=== PATIENT | female | born 1945 | race Caucasian/White ===

== ENCOUNTER 2018-01-03 08:57 | Inpatient (IN) | payer OTHER ==
[~2018-01-03] VITALS: Ht 165.1 cm; Wt 80.8 kg
[~2018-01-03 08:57] MED LIST: ALPRAZOLAM0.5 M4 PO; BENZONATATE200 MG PO; CALCIUM + D3 E1 EACH PO; DIOVAN HCT 12.51 TA2 PO; DOXYCYCLINE100 M3 PO; EXCEDRIN MIGRAI1 TAB PO; FLUOXETINE HCL20 M2 PO; MAXALT10 MG PO; MEDROL DOSEPAK1 PAC PO; METOPROLOL SUC100 M2 PO; MUCINEX1200 MG PO; MULTIPLE VITAM1 EAC2 PO; NOVAPLUS V0.09 MG/Ac PO; PROAIR HFA0.09 MG/Ac INH; TYLENOL #31 TAB PO; ZITHROMAX Z-PA250 M1 PO; ZOCOR20 M1 PO
--- NOTE | 2018-01-03 09:43 | ED GI/GU/ABDOMINAL COMPLAINT ---
History of Present Illness General Chief Complaint: General Adult Stated Complaint: BIBA FOR BLOOD IN STOOL, GI BLEED Source: patient, family, old records Exam Limitations: no limitations Vital Signs & Intake/Output Vital Signs & Intake/Output Vital Signs Date Time Temp Pulse Resp B/P B/P Pulse O2 O2 Flow FiO2 Mean Ox Delivery Rate 01/03 1304 97.1 82 18 136/72 94 Nasal 2.0L Cannula 01/03 1026 95 Room Air 01/03 0900 97.3 102 18 123/61 94 Room Air Allergies Coded Allergies: amoxicillin (From AUGMENTIN) (Intermediate, stomach DISCOMFORT 01/03/18) clavulanic acid (From AUGMENTIN) (Intermediate, stomach DISCOMFORT 01/03/18) Reconcile Medications Alprazolam 0.5 MG TABLET 1 TAB PO DAILY NEEDED PRN ANXIETY (Reported) Calcium Carb & Citrate/Vit D3 (Calcium + D3 ER Tablet) 600 MG CALCIUM-500 UNIT TABLET.ER 1 TAB PO DAILY VITAMIN SUPPORT (Reported) Fluoxetine HCl 20 MG CAPSULE 1 CAP PO DAILY MENTAL HEALTH (Reported) Metoprolol Succinate 100 MG TAB.ER.24H 1 TAB PO DAILY HEART (Reported) Multivitamin (Multiple Vitamins) 1 EACH TABLET 1 TAB PO DAILY VITAMIN SUPPORT (Reported) Simvastatin (Zocor*) 20 MG TABLET 1 TAB PO QPM CHOLESTEROL (Reported) Valsartan (Diovan) 80 MG TABLET 1 TAB PO DAILY HEADACHE (Reported) Triage Note: 72 YEAR OLD FEMALE ALERT AND ORIENTED TO ER VIA AMBULANCE FROM HER HOME WITH COMPLAINTS OF QUESTIONS A GI BLEED, (UPPPER AND LOWER.) PT STATES THAT SHE HAD UPPER AND LOW GI SCOPE BACK IN AND WAS TOLD THAT SHE HAD HEALED ULCERS , PT HAS HAD HISTORY OF GO BLEED YEARS BACK. PT ALSO STATES THAT SHE HAS BEEN SUFFERING WITH HEADACHES AND HAS BEEN TAKING ASA FOR THEM" STATES THE DOCTOR TOLD ME NOT TO BUT ITS WHAT WORKS FOR ME". STATES THAT SHE WAS NOT FEELING THAT GREAT YESTERDAY , HAD A SLIGHT BURNING IN HER UPPER MID ABDOMEN, AND HAD SOME NAUSEA, AROUND 0600 THIS AM SHE HAD SEVERE NAUSEA AND SAT UP AND VOMITTED , DESCRIBES COFFEE GROUND MATERIAL WITH A FEW BRIGHT RED BLOOD CLOTS, ALSO STATES THAT SHE HAD 1 BOWEL MOVEMENT, BRIGHT RED BLOOD ON THE SURFACE OF THE STOOL. PT STATES THAT HER HEMAGLOBIN AND HEMATOCRIT HAVE BEEN SLOWLY DECREASING OVER THE PAST 6 MONTHS. COLOR PALE, COMPLAINS OF SOB ON EXERTION, HAS INTERMITTANT ABD CRAMPING THAT STARTED LAST PM. PAIN IN ABD 6/10 AT THIS TIME. Triage Nurses Notes Reviewed? yes ? n Is pt currently ? No Onset: Abrupt Duration: hour(s):, constant, getting worse Timing: recent history Radiation: no radiation HPI: Pt is a 72 year old WF with a of duodenal & pyloric ulcers, hemorrhoids, tobacco use hx, HTN, migraines (on PRN Excedrin) who presents to ED after an episode of bloody emesis this morning at approx 6 am and several large black, tarry bowel movements. She has mild epigastric and lower abdominal pain. She states she noticed some pink/red staining of her bowels approx two weeks ago. She has recently been significantly fatigued/lightheaded, especially worse with even minimal activity and changes in position. She endorses some SOB with exertion, intermittent palpitations. She denies CP, fevers/chills. No hx of atrial fibrillation. No daily anticoagulation or antiplatelet regimen. No hx of h. pylori infection. No other NSAID use besides PRN excedrin for migraines. Her most recent colonoscopy and endoscopy were performed June 2017 where she states there was no sign of active bleeding. She was started on a 3 month course of pantoprazole. (Vivek Sr) Past History Travel History Traveled to [place] past 21 day No Medical History Any Pertinent Medical History? see below for history Neurological: NONE EENT: sinusitis Cardiovascular: hypertension, hyperlipidemia Respiratory: NONE Gastrointestinal: GERD, peptic ulcer disease, upper GI bleed Hepatic: NONE Renal: NONE Musculoskeletal: NONE Psychiatric: NONE Endocrine: NONE Blood Disorders: NONE Cancer(s): NONE Surgical History Surgical History: non-contributory Psychosocial History What is your primary language Ivorian Tobacco Use: Never used ETOH Use: denies use Illicit Drug Use: denies illicit drug use Family History Hx Contributory? No (Vivek Sr) Review of Systems Review of Systems Constitutional: Reports: malaise, weakness. Denies: chills, diaphoresis, fever. EENTM: Reports: no symptoms. Respiratory: Denies: see HPI. Cardiovascular: Denies: see HPI. GI: Denies: see HPI. Genitourinary: Denies: no symptoms. Musculoskeletal: Denies: see HPI. Skin: Denies: no symptoms. Neurological/Psychological: Reports: headache, weakness. Hematologic/Endocrine: Reports: bleeding. Immunologic/Allergic: Reports: no symptoms. All Other Systems: Reviewed and Negative (Vivek Sr) Physical Exam Physical Exam General Appearance: well developed/nourished, no apparent distress, alert, awake , comfortable Head: atraumatic, normal appearance Eyes: Bilateral: normal appearance, EOMI, other (Conjunctival pallor). Ears, Nose, Throat, Mouth: hearing grossly normal Neck: normal inspection Respiratory: normal breath sounds, no respiratory distress, lungs clear Cardiovascular: regular rate/rhythm Peripheral Pulses: 1+ dorsalis pedis (R), 1+ dorsalis pedis (L) Gastrointestinal: soft, non-tender, no organomegaly Rectal: heme positive stool Extremities: normal range of motion Neurologic/Psych: no motor/sensory deficits Skin: intact Core Measures ACS in differential dx? No Sepsis Present: No Sepsis Focused Exam Completed? No (Vivek Sr) Progress Differential Diagnosis: appendicitis, biliary colic, bowel obstruction, cholecystitis, diverticulitis, pancreatitis, peptic ulcer, PUD/GERD, perforated viscous, SBO Plan of Care: Orders Procedure Date/time Status Clear Liquid Diet 01/03 D Active URINALYSIS 01/03 1340 Active Pathway - chart 01/03 1309 Active House Staff 01/03 1309 Active Patient Data 01/03 1309 Active Code Status 01/03 1309 Active Patient Data 01/03 1251 Active PATHOLOGY SPECIMEN 01/03 1225 Active OXYGEN SETUP (GEN) 01/03 1145 Active Saline Lock 01/03 1145 Active Admit to inpatient 01/03 1145 Active Vital Signs 01/03 1145 Active Activity/Ambulation 01/03 1145 Active Code Status 01/03 1145 Complete Intake & Output 01/03 0914 Active TROPONIN LEVEL 01/03 0912 Complete PARTIAL THROMBOPLASTIN TIME 01/03 0912 Complete PROTHROMBIN TIME 01/03 0912 Complete LACTIC ACID 01/03 0912 Complete COMPREHENSIVE METABOLIC PANEL 01/03 0912 Complete CBC WITHOUT DIFFERENTIAL 01/03 0912 Complete TYPE & SCREEN (NOT X-MATCH) 01/03 0912 Complete EKG 01/03 0901 Active VTE Mechanical Prophylaxis 01/03 UNK Active Current Medications Sig/Ashlee Start time Last Medication Dose Stop Time Status Admin Fluoxetine HCl 20 MG DAILY 01/04 1000 AC (Prozac) Losartan Potassium 50 MG DAILY 01/04 1000 AC (Cozaar) Metoprolol Succinate 100 MG DAILY 01/04 1000 AC (Toprol Xl) Atorvastatin Calcium 20 MG 1700 01/03 1700 AC (Lipitor) Ferrous Sulfate 325 MG BID 01/03 1401 UNVr (Feosol) Omeprazole 40 MG BID 01/03 1401 UNVr (Prilosec) Phenol 2 SPRAY Q2P PRN 01/03 1400 AC (Chloraseptic (Phenaseptic) [place]) Acetaminophen 325 MG Q6P PRN 01/03 1315 AC (Tylenol) Alprazolam 0.5 MG DAILY NEEDED PRN 01/03 1315 AC (Xanax) 01/10 1314 Pantoprazole Sodium 40 MG ONCE ONE 01/03 1015 AC 01/03 (Protonix) 01/03 1514 1021 Sodium Chloride 100 ML (Normal Saline 0.9%) Laboratory Tests 01/03/18 1344: Urine Color Pending, Urine Clarity Pending, Urine pH Pending, Ur Specific [place] Pending, Urine Protein Pending, Urine Ketones Pending, Urine Nitrite Pending, Urine Bilirubin Pending, Urine Urobilinogen Pending, Ur Leukocyte Esterase Pending, Ur Microscopic SEDIMENT EXAMINED, Urine RBC Pending, Urine Hemoglobin Pending, Urine Glucose Pending 01/03/18 1212: Lactic Acid Cancelled 01/03/18 0930: Anion Gap 11, Estimated GFR > 60, BUN/Creatinine Ratio 66.3 H, Glucose 130 H, Lactic Acid 1.7, Calcium 8.9, Total Bilirubin 0.6, AST 15, ALT 25, Alkaline Phosphatase 80, Troponin I 0.02, Total Protein 6.7, Albumin 3.5, Globulin 3.2, Albumin/Globulin Ratio 1.1, PT 13.6 H, INR 1.24 H, APTT 34, CBC w Diff NO MAN DIFF REQ, RBC 2.73 L, MCV 93.6, MCH 31.2 H, MCHC 33.3, RDW 13.7, MPV 10.5 H, Gran % 84.8 H, Lymphocytes % 9.6 L, Monocytes % 5.1, Eosinophils % 0.2, Basophils % 0.3, Absolute Granulocytes 11.8 H, Absolute Lymphocytes 1.3, Absolute Monocytes 0.7 H, Absolute Eosinophils 0, Absolute Basophils 0 Initial ED EKG: normal sinus rhythm, rate (99) (Vivek Sr) Departure Departure Disposition: STILL A PATIENT Condition: Stable Clinical Impression Primary Impression: Upper GI bleed Referrals: Patient Has No Primary Care Dr Departure Forms: Customer Survey General Discharge Information Admission Note Spoke With: Diana Gamble MD Documentation of Exam: Documentation of any treatments & extenuating circumstances including Concerns Regarding Discharge (functional status, medication knowledge or non-compliance, living conditions, etc.) that warrant an admission rather than observation: Patient will require repeat CBCs. GI consultation. Upper endoscopy. High risk. Medically not safe for discharge. Drop in H&H. (Vivek Sr) PA/SLUNK SKIN CURER Co-Sign Statement Statement: ED Attending supervision documentation- x I saw and evaluated the patient. I have also reviewed all the pertinent lab results and diagnostic results. I agree with the findings and the plan of care as documented in the PA's/SLUNK SKIN CURER's documentation. Hematochezia, hx gastritis, symptomatic anemia I have reviewed the ED Record and agree with the PA's/SLUNK SKIN CURER's documentation. [] Additions or exceptions (if any) to the PAs/SLUNK SKIN CURER's note and plan are summarized below: [] (Brown JOHANSEN,Jose) Critical Care Note Critical Care Note Critical Care Time: 30-74 min (60) (Vivek Sr)
[2018-01-03 09:48] LABS: ABSOLUTE BASOPHIL COUNT 0 /CUMM (0.0-0.2); ABSOLUTE EOSINOPHIL COUNT 0 /CUMM (0.0-0.7); ABSOLUTE GRANULOCYTE CT 11.8 /CUMM (1.4-6.5); ABSOLUTE LYMPH COUNT 1.3 /CUMM (1.2-3.4); ABSOLUTE MONOCYTE COUNT 0.7 /CUMM (0.10-0.60); BASOPHIL % 0.3 % (0.0-2.0); EOSINOPHIL % 0.2 % (0-5); HEMATOCRIT 25.5 % (37-47); MEAN CORPUSCULAR HGB 31.2 PG (27.0-31.0); MEAN CORPUSCULAR HGB CONC 33.3 G/DL (33.0-37.0); MEAN CORPUSCULAR VOLUME 93.6 FL (81.0-99.0); MEAN PLATELET VOLUME 10.5 FL (7.4-10.4); PLATELET COUNT 229 /CUMM (130-400); RBC DISTRIBUTION WIDTH 13.7 % (11.5-14.5); RED BLOOD CELL CT 2.73 /CUMM (4.20-5.40); WHITE BLOOD CELL COUNT 13.9 /CUMM (4.8-10.8)
[2018-01-03 09:58] LABS: GRANULOCYTE % 84.8 % (42.2-75.2)
[2018-01-03 10:01] LABS: PT 13.6 SEC (9.4-12.5); PTT 34 SEC (25-37)
[2018-01-03] MEDS ORDERED: DIOVAN80 M1 PO (10:30)
--- NOTE | 2018-01-03 11:36 | Cons- Gastroenterology ---
General Information and HPI Consulting Request Date of Consult: 01/03/18 Requested By: JOHN Galo Reason for Consult: Hematemesis, melena, brbrp, anemia. Source of Information: patient, old records Exam Limitations: no limitations History of Present Illness: Ms. Kuhn is a 72 year old female with a PMH significant for hypertension, hyperlipidemia, migraines and gastritis who presented to [facility] this morning with complaints of coffee-ground emesis and bright blood per rectum. She notes that over the past several days she has had a slight discomfort in her upper abdomen which she described as a 'twinge sensation', but she has been without any burning epigastric pain or heartburn. She has been taking excedrin for headaches which she notes she takes about every other day and she denies any significant GI distress with taking it. She also notes that she stopped taking her Prilosec back in June which was the last time she underwent an endoscopy. This morning she awoke with some nausea which was followed by vomiting up of coffee-ground emesis along with scant amounts of fresh blood. The vomiting was followed by several episodes of dark tarry stool and she also notes she noted some red blood in her stool. She denies any significant chest pain, shortness of breath, or lightheadedness and she has not had any syncopal episodes. Prior to this morning she had been having normal bowel movements. On presentation to the ER she was mildly tachycardic, but normotensive. A rectal exam revealed dark guaiac positive stool and she was noted to have a hemoglobin of 8.5 which was a 3 g drop from her baseline. She was given a bolus of IV Protonix and kept nothing by mouth. Since arrival to the hospital she has not had any further vomiting or any bowel movements. Allergies/Medications Allergies: Coded Allergies: amoxicillin (From AUGMENTIN) (Intermediate, stomach DISCOMFORT 01/03/18) clavulanic acid (From AUGMENTIN) (Intermediate, stomach DISCOMFORT 01/03/18) Home Med List: Alprazolam 0.5 MG TABLET 1 TAB PO DAILY NEEDED PRN ANXIETY (Reported) Calcium Carb & Citrate/Vit D3 (Calcium + D3 ER Tablet) 600 MG CALCIUM-500 UNIT TABLET.ER 1 TAB PO DAILY VITAMIN SUPPORT (Reported) Fluoxetine HCl 20 MG CAPSULE 1 CAP PO DAILY MENTAL HEALTH (Reported) Metoprolol Succinate 100 MG TAB.ER.24H 1 TAB PO DAILY HEART (Reported) Multivitamin (Multiple Vitamins) 1 EACH TABLET 1 TAB PO DAILY VITAMIN SUPPORT (Reported) Simvastatin (Zocor*) 20 MG TABLET 1 TAB PO QPM CHOLESTEROL (Reported) Valsartan (Diovan) 80 MG TABLET 1 TAB PO DAILY HEADACHE (Reported) Current Medications: Current Medications Sig/Ashlee Start time Last Medication Dose Route Stop Time Status Admin Pantoprazole Sodium 0 .STK-MED ONE 01/03 1025 DC IV Pantoprazole Sodium 40 MG ONCE ONE 01/03 1015 AC 01/03 Sodium Chloride 100 ML IV 01/03 1514 1021 Past History Travel History Traveled to [place] past 21 day No Medical History Neurological: NONE EENT: sinusitis Cardiovascular: hypertension, hyperlipidemia Respiratory: NONE Gastrointestinal: GERD, peptic ulcer disease, upper GI bleed Hepatic: NONE Renal: NONE Musculoskeletal: NONE Psychiatric: NONE Endocrine: NONE Blood Disorders: NONE Cancer(s): NONE Surgical History Surgical History: non-contributory Psychosocial History ETOH Use: denies use Illicit Drug Use: denies illicit drug use Review of Systems Review of Systems Constitutional: Denies: chills, diaphoresis, fever, malaise, weakness, unexplained weight loss. EENTM: Denies: no symptoms. Cardiovascular: Denies: no symptoms. Respiratory: Denies: no symptoms. GI: Reports: see HPI. Genitourinary: Denies: no symptoms. Musculoskeletal: Denies: no symptoms. Skin: Denies: no symptoms. Neurological/Psychological: Reports: headache. Hematologic/Endocrine: Reports: bleeding. Denies: bruising. Immunologic/Allergic: Denies: no symptoms. All Other Systems: Reviewed and Negative Exam & Diagnostic Data Vital Signs and I&O Vital Signs Date Time Temp Pulse Resp B/P B/P Pulse O2 O2 Flow FiO2 Mean Ox Delivery Rate 01/03 1026 95 Room Air 01/03 0900 97.3 102 18 123/61 94 Room Air Intake & Output 01/03 1600 01/03 0400 01/02 1600 01/02 04001/01 1600 01/01 040 Intake Total 0 Output Total Balance 0 Intake, Oral 0 Patient 168 lb Weight Results Pertinent Lab Results: Laboratory Tests 01/03 0930 Chemistry Sodium (137 - 145 mmol/L) 143 Potassium (3.5 - 5.1 mmol/L) 4.7 Chloride (98 - 107 mmol/L) 104 Carbon Dioxide (22 - 30 mmol/L) 28 Anion Gap (5 - 16) 11 BUN (7 - 17 mg/dL) 53 H Creatinine (0.5 - 1.0 mg/dL) 0.8 Estimated GFR (>60 ml/min) > 60 BUN/Creatinine Ratio (7 - 25 %) 66.3 H Glucose (65 - 99 mg/dL) 130 H Lactic Acid (0.7 - 2.1 mmol/L) 1.7 Calcium (8.4 - 10.2 mg/dL) 8.9 Total Bilirubin (0.2 - 1.3 mg/dL) 0.6 AST (14 - 36 U/L) 15 ALT (9 - 52 U/L) 25 Alkaline Phosphatase (<127 U/L) 80 Troponin I (< 0.11 ng/ml) 0.02 Total Protein (6.3 - 8.2 g/dL) 6.7 Albumin (3.5 - 5.0 g/dL) 3.5 Globulin (1.9 - 4.2 gm/dL) 3.2 Albumin/Globulin Ratio (1.1 - 2.2 %) 1.1 Coagulation PT (9.4 - 12.5 SEC) 13.6 H INR (0.90 - 1.19) 1.24 H APTT (25 - 37 SEC) 34 Hematology CBC w Diff NO MAN DIFF REQ WBC (4.8 - 10.8 /CUMM) 13.9 H RBC (4.20 - 5.40 /CUMM) 2.73 L Hgb (12.0 - 16.0 G/DL) 8.5 L Hct (37 - 47 %) 25.5 L MCV (81.0 - 99.0 FL) 93.6 MCH (27.0 - 31.0 PG) 31.2 H MCHC (33.0 - 37.0 G/DL) 33.3 RDW (11.5 - 14.5 %) 13.7 Plt Count (130 - 400 /CUMM) 229 MPV (7.4 - 10.4 FL) 10.5 H Gran % (42.2 - 75.2 %) 84.8 H Lymphocytes % (20.5 - 51.1 %) 9.6 L Monocytes % (1.7 - 9.3 %) 5.1 Eosinophils % (0 - 5 %) 0.2 Basophils % (0.0 - 2.0 %) 0.3 Absolute Granulocytes (1.4 - 6.5 /CUMM) 11.8 H Absolute Lymphocytes (1.2 - 3.4 /CUMM) 1.3 Absolute Monocytes (0.10 - 0.60 /CUMM) 0.7 H Absolute Eosinophils (0.0 - 0.7 /CUMM) 0 Absolute Basophils (0.0 - 0.2 /CUMM) 0 Assessment/Plan Assessment/Recommendations: Assessment: Ms. Kuhn is a 72 year old female who presents with coffee ground emesis, melena and a decreased hemoglobin all likely secondary to an upper GI bleed which I presume is secondary to NSAIDs especially considering she stopped her PPI about 6 months ago and continued to take excedrin. Her BUN/Cr ratio suggests the fall from her hgb is from an upper GI source (as does the hematemsis) so I will arrange for a diagnostic EGD now to assess for any active bleeding, treat any high risk lesions and also to rule out any other cause of the bleeding such as a malignancy, avm, dieulafoys lesion, or a gloria perez tear, but it should be noted that as she had an EGD in June of last year a malignancy is very unlikely. Recommendations: 1. Continue IV protonix drip for now. 2. Keep NPO 3. Maintain 2 large bore IVs at all times. 4. Notify GI for signs of overt GI bleeding. 5. Hold all nsaids 6. Follow CBC q8hr and transfuse as needed to keep hgb > 8. 6. Will arrange for a diagnostic/therapeutic EGD now to further evaluate the etiology of her hematemesis, assess for active bleeding and/or treat any high risk lesions. I will continue to follow this patient and make further recommendations based on her clinical course and results of her EGD Copies To: Mary Win MD Consult Acknowledgment - Thank you for your consult request.
--- NOTE | 2018-01-03 12:04 | Proc Note Endoscopy ---
Endoscopy Procedure Medical History: unchanged (see [facility]) Mental Status: alert/oriented Heart/Lung Eval Prior to Sedation: within normal limits Candidate for Sedation? Yes Procedure Date: 01/03/18 Procedure Type: EGD w/biopsy Lath Hand: Sharan Jones MD ASA Classification: II Indications: Hematemesis, melena. Instrument: diagnostic gastroscope Meds Received: MAC Patient's Tolerance: good Complications: none Extent Reached: second part of duodenum Procedure: After getting written informed consent the patient was prophylactically intubated and was then placed in the left lateral decubitus position with pulse oximetry, cardiac monitoring, and supplemental oxygen given. A bite block was inserted and IV sedation was given until the desired effect was achieved. A high definition upper Olympus endoscope was then inserted into the mouth and advanced to the second portion of the duodenum with little difficulty. Retroflexed views and photodocumentation was obtained. Findings: Esophagus: Esophageal mucosa was grossly normal appearance and there was a normal-appearing Z line at 40 cm from incisors. Stomach: The antral mucosa was mildly erythematous with several scattered erosions and the pylorus was widely patent and deformed suggestive of prior peptic ulcer disease, but there were no active ulcers or masses appreciated. There was also no bleeding appreciated within the stomach. Retroflexed views were normal did not reveal significant hiatal hernia. Random biopsies were obtained from the antrum with cold biopsy forceps and were sent to pathology for further valuation. Duodenum: The duodenal bulb was moderately erythematous with a few small less than 1 cm clean-based ulcerations. The duodenal sweep and folds are grossly normal appearance. There was bile appreciated throughout to the second portion of the duodenum. Impression: 1. Small clean-based duodenal ulcers status post antral biopsies. 2. Erosive gastritis and deformed antrum suggestive of prior peptic ulcer disease. 3. No active bleeding appreciated to the second portion of the duodenum. Recommendations: 1. Advance diet as tolerated. 2. Place on an oral PPI twice a day for 2 weeks and then daily dosing. 3. She should be counseled to avoid taking NSAIDs. 4. She should follow the pathology results with me as an outpatient. 5. She should be started on oral iron supplementation. 6. She should follow-up as an outpatient to give consideration for a small bowel PillCam plus or minus a repeat colonoscopy. CC: Quirino JOHANSEN,Mary
--- NOTE | 2018-01-03 14:00 | History & Physical ---
Marly Ortiz 01/03/18 1339: General Information and HPI MD Statement: I have seen and personally examined MONI KUHN and documented this H&P. The patient is a 72 year old F who presented with a patient stated chief complaint of [GI bleed]. Source of Information: patient, old records Exam Limitations: no limitations History of Present Illness: Ms. Kuhn is a 72 year old female with a PMH significant for hypertension, hyperlipidemia, migraines and gastritis who presented to [facility] with complaints of coffee-ground emesis and bright blood per rectum. Patient reports that for the past several days she has been having discomfort in her upper abdomen and this morning she woke up at around 3 AM with nausea and had multiple episodes of coffee-ground emesis mixed with fresh blood. She also reports dark tarry stools mixed with fresh blood. She has been feeling tired, fatigued and lightheaded from the past several weeks. Denied any chest pain, shortness of breath, palpitations, syncopal or urinary symptoms. She has history of migraines and has been taking a lot of aspirin in the past few days. Denies any other NSAID use. Denies any epigastric pain or heartburn. Patient had been following with Dr. Smith as outpatient and had colonoscopy and endoscopy done in June 2017 which revealed no active bleeding, some gastric erosions and she was started on Prilosec and iron supplements. Plan was to pursue PillCam later. Patient had stopped taking Prilosec and iron supplements after 3 months. Rectal exam done in the ER showed dark guaiac-positive stool and a hemoglobin of 8.5. Vitals in the ED showed a temperature 97.3, pulse 102, respiration 18, blood pressure 123/61, saturating 94% on room air Significant labs showed a white count of 13.9, H&H of 8.3 / 25.5(baseline 11), INR 1.24. Endoscopy done showed clean-based duodenal ulcers, erosive gastritis and deformed antrum suggestive of prior peptic ulcer disease. No active bleeding was appreciated Allergies/Medications Allergies: Coded Allergies: amoxicillin (From AUGMENTIN) (Intermediate, stomach DISCOMFORT 01/03/18) clavulanic acid (From AUGMENTIN) (Intermediate, stomach DISCOMFORT 01/03/18) Home Med list Alprazolam 0.5 MG TABLET 1 TAB PO DAILY NEEDED PRN ANXIETY (Reported) Calcium Carb & Citrate/Vit D3 (Calcium + D3 ER Tablet) 600 MG CALCIUM-500 UNIT TABLET.ER 1 TAB PO DAILY VITAMIN SUPPORT (Reported) Fluoxetine HCl 20 MG CAPSULE 1 CAP PO DAILY MENTAL HEALTH (Reported) Metoprolol Succinate 100 MG TAB.ER.24H 1 TAB PO DAILY HEART (Reported) Multivitamin (Multiple Vitamins) 1 EACH TABLET 1 TAB PO DAILY VITAMIN SUPPORT (Reported) Simvastatin (Zocor*) 20 MG TABLET 1 TAB PO QPM CHOLESTEROL (Reported) Valsartan (Diovan) 80 MG TABLET 1 TAB PO DAILY HEADACHE (Reported) Past History Travel History Traveled to [place] past 21 day No Medical History Neurological: NONE EENT: sinusitis Cardiovascular: hypertension, hyperlipidemia Respiratory: NONE Gastrointestinal: GERD, peptic ulcer disease, upper GI bleed Hepatic: NONE Renal: NONE Musculoskeletal: NONE Psychiatric: NONE Endocrine: NONE Blood Disorders: NONE Cancer(s): NONE Surgical History Surgical History: non-contributory Past Family/Social History Psychosocial History ETOH Use: denies use Illicit Drug Use: denies illicit drug use Review of Systems Review of Systems Constitutional: Reports: malaise, weakness. EENTM: Reports: no symptoms. Cardiovascular: Reports: no symptoms. Respiratory: Reports: no symptoms. GI: Reports: melena, nausea, bloody stool, vomiting. Genitourinary: Reports: no symptoms. Musculoskeletal: Reports: no symptoms. Exam & Diagnostic Data Last 24 Hrs of Vital Signs/I&O Vital Signs Date Time Temp Pulse Resp B/P B/P Pulse O2 O2 Flow FiO2 Mean Ox Delivery Rate 01/03 1304 97.1 82 18 136/72 94 Nasal 2.0L Cannula 01/03 1026 95 Room Air 01/03 0900 97.3 102 18 123/61 94 Room Air Intake & Output 01/03 1600 01/03 0800 01/03 0000 Intake Total 1000 Output Total Balance 1000 Intake, IV 1000 Intake, Oral 0 Patient 76.204 kg Weight Physical Exam General Appearance Alert, Oriented X3, Cooperative, Mild Distress Skin No Rashes HEENT Atraumatic, PERRLA, EOMI Neck Supple, No JVD Lymphatic Cervical nl Cardiovascular Regular Rate, Normal S1, Normal S2, No Murmurs Lungs Clear to Auscultation, Normal Air Movement Abdomen Normal Bowel Sounds, Soft, mild tenderness in the epigastric area. Neurological Normal Speech Extremities No Clubbing, No Cyanosis Rectal heme positive stools Last 24 Hrs of Labs/Seun: Laboratory Tests 01/03/18 1344: Urine Color Pending, Urine Clarity Pending, Urine pH Pending, Ur Specific [place] Pending, Urine Protein Pending, Urine Ketones Pending, Urine Nitrite Pending, Urine Bilirubin Pending, Urine Urobilinogen Pending, Ur Leukocyte Esterase Pending, Ur Microscopic Pending, Urine Hemoglobin Pending, Urine Glucose Pending 01/03/18 1212: Lactic Acid Cancelled 01/03/18 0930: Anion Gap 11, Estimated GFR > 60, BUN/Creatinine Ratio 66.3 H, Glucose 130 H, Lactic Acid 1.7, Calcium 8.9, Total Bilirubin 0.6, AST 15, ALT 25, Alkaline Phosphatase 80, Troponin I 0.02, Total Protein 6.7, Albumin 3.5, Globulin 3.2, Albumin/Globulin Ratio 1.1, PT 13.6 H, INR 1.24 H, APTT 34, CBC w Diff NO MAN DIFF REQ, RBC 2.73 L, MCV 93.6, MCH 31.2 H, MCHC 33.3, RDW 13.7, MPV 10.5 H, Gran % 84.8 H, Lymphocytes % 9.6 L, Monocytes % 5.1, Eosinophils % 0.2, Basophils % 0.3, Absolute Granulocytes 11.8 H, Absolute Lymphocytes 1.3, Absolute Monocytes 0.7 H, Absolute Eosinophils 0, Absolute Basophils 0 Assessment/Plan Assessment: Ms. Kuhn is a 72 year old female with a PMH significant for hypertension, hyperlipidemia, migraines and gastritis who presented to [facility] with complaints of coffee-ground emesis and bright blood per rectum. Vitals in the ED showed a temperature 97.3, pulse 102, respiration 18, blood pressure 123/61, saturating 94% on room air Significant labs showed a white count of 13.9, H&H of 8.3 / 25.5(baseline 11), INR 1.24. Rectal exam done in the ER showed dark guaiac-positive stool and a hemoglobin of 8.5. Endoscopy done showed clean-based duodenal ulcers, erosive gastritis and deformed antrum suggestive of prior peptic ulcer disease. No active bleeding was appreciated. Assessment Upper GI bleed likely secondary to NSAIDs Anemia Migraines Hypertension Hyperlipidemia Plan Admit to [facility] CBC every 12 hours Protonix twice a day Will advance diet Will start oral iron supplementation Patient consult to avoid taking NSAIDs We will try Fioricet for headaches Continue all other home medications Outpatient follow-up with Dr. Jones for pathology results Plan to do small bowel PillCam with or without colonoscopy as an outpatient. DVT prophylaxis Alps Full code As Ranked By This Provider Problem List: 1. Upper GI bleed Core Measures/Misc (06/23) Acute Coronary Syndrome ACS Diagnosis: No Congestive Heart Failure Congestive Heart Failure Diagnosis No Cerebrovascular Accident CVA/TIA Diagnosis: No VTE (View Protocol) VTE Risk Factors Age>40 No Mechanical VTE Prophylaxis d/t N/A MechProphylax Ordered No VTE Pharm Prophylaxis d/t Bleeding (Active) Sepsis (View protocol) Sepsis Present: No Diana Gamble MD 01/03/18 1431: Attending MD Review Statement Attending Statement Attending MD Statement: examined this patient, discuss w/resident/PA/CAP CUTTER, agreed w/resident/PA/CAP CUTTER, reviewed EMR data (avail) Attending Assessment/Plan: 72F PMH HTN, HLD, migraines presenting with coffee ground emesis and melena. She has a history of gastric erosions diagnosed June 2017 by EGD after presenting with melena, took a PPI for 3 months and then stopped. She has had melena for the past 3 days, and awoke last night vomiting coffee grounds and dark blood. She came to the ED where she was found to be hemodynamically stable with a Hgb drop from 11 to 8. She was taken for EGD which found multiple non- bleeding duodenal ulcers and gastric erosions. She currently has no complaints and feels hungry. 1. Acute upper GI bleed 2. Duodenal ulcers 3. Acute on chronic blood loss anemia Plan - Admit to general medicine - PPI BID - Clear liquid diet, advance as tolerated - CBC tonight and again tomorrow morning - Continue home meds - Avoid NSAIDs - ALPS for DVT PPx
[2018-01-03 14:23] VITALS: BP 144/76
--- NOTE | 2018-01-03 14:55 | Admission Certification ---
Admission Certification Certification Statement - As attending physician, I certify that at the time of - admission, based on clinical presentation, severity of - symptoms, need for further diagnostic testing and - therapeutic interventions, and risk of adverse outcomes - without in-hospital treatment, in my clinical assessment, - this patient requires an acute hospital stay for a minimum - of two nights or longer. I have also considered psychsocial - factors such as support system, advanced age, financial - issues, cognitive issues, and failed out-patient treatments, - past re-admission history, safety of patient, and lack of - compliance as applicable. Specific rationale supporting this admission is: Acute GI bleed with multiple ulcers and symptomatic anemia
[2018-01-03 19:53] LABS: ABSOLUTE BASOPHIL COUNT 0 /CUMM (0.0-0.2); ABSOLUTE EOSINOPHIL COUNT 0 /CUMM (0.0-0.7); BASOPHIL % 0 % (0.0-2.0); EOSINOPHIL % 0 % (0-5)
[2018-01-03 19:58] LABS: ABSOLUTE GRANULOCYTE CT 14.1 /CUMM (1.4-6.5); ABSOLUTE LYMPH COUNT 1.1 /CUMM (1.2-3.4); ABSOLUTE MONOCYTE COUNT 0.2 /CUMM (0.10-0.60); HEMATOCRIT 22.8 % (37-47); MEAN CORPUSCULAR HGB 31.1 PG (27.0-31.0); MEAN CORPUSCULAR HGB CONC 32.9 G/DL (33.0-37.0); MEAN CORPUSCULAR VOLUME 94.6 FL (81.0-99.0); MEAN PLATELET VOLUME 10.4 FL (7.4-10.4); PLATELET COUNT 210 /CUMM (130-400); RBC DISTRIBUTION WIDTH 13.8 % (11.5-14.5); RED BLOOD CELL CT 2.41 /CUMM (4.20-5.40); WHITE BLOOD CELL COUNT 15.4 /CUMM (4.8-10.8)
[2018-01-03 20:16] LABS: GRANULOCYTE % 91.6 % (42.2-75.2)
[2018-01-03 22:05] VITALS: BP 120/64
--- NOTE | 2018-01-04 05:26 | PN- Housestaff ---
See Addendum Subjective Follow-up For: acute gi bleed Complaints: no complaints Subjective: I have seen and examined the patient today timothy. she seems to be feeling better. Her hgb dropped to 7.5, GI was called and case was discussed with DR mueller. He was agreeable to transfusing one unit. Recommendations to monitor closely. will see patient in am. Review of Systems Constitutional: Reports: see HPI. Objective Last 24 Hrs of Vital Signs/I&O Vital Signs Date Time Temp Pulse Resp B/P B/P Pulse O2 O2 Flow FiO2 Mean Ox Delivery Rate 01/03 2205 99.4 99 20 120/64 94 Room Air 01/03 1423 98.2 102 20 144/76 90 Room Air 01/03 1304 97.1 82 18 136/72 94 Nasal 2.0L Cannula 01/03 1026 95 Room Air 01/03 0900 97.3 102 18 123/61 94 Room Air Intake & Output 01/04 0800 01/04 0000 01/03 1600 Intake Total 350 1240 Output Total 300 Balance 50 1240 Intake, IV 1000 Intake, Oral 350 240 Number 1 Bowel Movements Output, Urine 300 Patient 80.824 kg Weight Weight Bed scale Measurement Method Physical Exam General Appearance: Alert, Oriented X3, Cooperative Skin: No Rashes, No Breakdown HEENT: Atraumatic, PERRLA, EOMI Cardiovascular: Normal S1, Normal S2, No Murmurs Lungs: Clear to Auscultation, Normal Air Movement Abdomen: Normal Bowel Sounds, Soft, No Tenderness Current Medications: Current Medications Sig/Ashlee Start time Last Medication Dose Route Stop Time Status Admin Acetaminophen 325 MG Q6P PRN 01/03 1315 AC 01/04 PO 0035 Acetaminophen/ 1 TAB ONCE PRN 01/03 1715 AC 01/03 Butalbital/Caffeine PO 1803 Alprazolam 0.5 MG DAILY NEEDED PRN 01/03 1315 AC PO 01/10 1314 Atorvastatin Calcium 20 MG 1700 01/03 1700 AC 01/03 PO 1729 Chlorhexidine 1 GM .STK-MED ONE 01/03 1228 DC Gluconate TOP 01/03 1229 Enoxaparin Sodium 40 MG DAILY 01/03 1308 DC SC Ferrous Sulfate 325 MG BID 01/03 1401 AC 01/03 PO 2131 Fluoxetine HCl 20 MG DAILY 01/04 1000 AC PO Losartan Potassium 50 MG DAILY 01/04 1000 AC PO Metoprolol Succinate 100 MG DAILY 01/04 1000 AC PO Omeprazole 40 MG BID 01/03 1401 AC 01/03 PO 2131 Pantoprazole Sodium 0 .STK-MED ONE 01/03 1025 DC IV Pantoprazole Sodium 40 MG ONCE ONE 01/03 1015 DC 01/03 Sodium Chloride 100 ML IV 01/03 1514 1021 Phenol 2 SPRAY Q2P PRN 01/03 1400 AC EXT Last 24 Hrs of Lab/Seun Results Last 24 Hrs of Labs/Mics: Laboratory Tests 01/03/18 1926: CBC w Diff NO MAN DIFF REQ, RBC 2.41 L, MCV 94.6, MCH 31.1 H, MCHC 32.9 L, RDW 13.8, MPV 10.4, Gran % 91.6 H, Lymphocytes % 7.1 L, Monocytes % 1.3 L, Eosinophils % 0, Basophils % 0, Absolute Granulocytes 14.1 H, Absolute Lymphocytes 1.1 L, Absolute Monocytes 0.2, Absolute Eosinophils 0, Absolute Basophils 0 01/03/18 1344: Urine Color YEL, Urine Clarity CLEAR, Urine pH 6.0, Ur Specific [place] 1.020, Urine Protein NEG, Urine Ketones NEG, Urine Nitrite NEG, Urine Bilirubin NEG, Urine Urobilinogen 0.2, Ur Leukocyte Esterase NEG, Ur Microscopic SEDIMENT EXAMINED, Urine RBC 5-10 H, Urine WBC 3-5 H, Ur Epithelial Cells RARE, Urine Bacteria FEW H, Hyaline Casts 1-3 H, Granular Casts RARE H, Urine Hemoglobin LARGE H, Urine Glucose NEG 01/03/18 1212: Lactic Acid Cancelled 01/03/18 0930: Anion Gap 11, Estimated GFR > 60, BUN/Creatinine Ratio 66.3 H, Glucose 130 H, Lactic Acid 1.7, Calcium 8.9, Total Bilirubin 0.6, AST 15, ALT 25, Alkaline Phosphatase 80, Troponin I 0.02, Total Protein 6.7, Albumin 3.5, Globulin 3.2, Albumin/Globulin Ratio 1.1, PT 13.6 H, INR 1.24 H, APTT 34, CBC w Diff NO MAN DIFF REQ, RBC 2.73 L, MCV 93.6, MCH 31.2 H, MCHC 33.3, RDW 13.7, MPV 10.5 H, Gran % 84.8 H, Lymphocytes % 9.6 L, Monocytes % 5.1, Eosinophils % 0.2, Basophils % 0.3, Absolute Granulocytes 11.8 H, Absolute Lymphocytes 1.3, Absolute Monocytes 0.7 H, Absolute Eosinophils 0, Absolute Basophils 0 Lines/Diet/Fluids Restraints: none Assessment/Plan Assessment: Ms. Kuhn is a 72 year old female with a PMH significant for hypertension, hyperlipidemia, migraines and gastritis who presented to [facility] with complaints of coffee-ground emesis and bright blood per rectum. Vitals in the ED showed a temperature 97.3, pulse 102, respiration 18, blood pressure 123/61, saturating 94% on room air Significant labs showed a white count of 13.9, H&H of 8.3 / 25.5(baseline 11), INR 1.24. Rectal exam done in the ER showed dark guaiac-positive stool and a hemoglobin of 8.5. Endoscopy done by Dr ma and it showed clean-based duodenal ulcers, erosive gastritis and deformed antrum suggestive of prior peptic ulcer disease. No active bleeding was appreciated. Problem List alongwith Assessment and plan : #1 Upper GI bleed likely secondary to NSAIDs * Most likely 2/2 to excessive Nsaid Usage. * Endscopy was done and showed clean-based duodenal ulcers, erosive gastritis and deformed antrum suggestive of prior peptic ulcer disease. No active bleeding was appreciated. * monitor CBC q12 and target hgb > 8 * transfuse one unit as hgb has dropped, consent obtained from patient. * GI was called stat, cased discussed over night, agree with transfusins one unit, no prep for coloscopy for now, will see patient in am. * ct protonix #2 Acute blood loss Anemia * Acute blood loss anemia 2/2 to gi bleed. * ct to monitor for bleeding. * MCV 94.4 * transfuse as indicated. * can consider doing iron studies to rule out iron deficiency. #3 Migraines * Patient needs to avoid nsaid * if headache + ,try firocet. #4Hypertension/Hyperlipidemia * ct metoprolol 100 mg od * ct cozaar * ct lipitor DVT prophylaxis Alps Full code Problem List: 1. Upper GI bleed Pain Ratin Pain Location: headache Pain Goal: Remain pain free Pain Plan: firocet as cannot tolerate nsaids/tylenol. Tomorrow's Labs & Rationales: [facility] q12
[2018-01-04 07:16] VITALS: BP 124/66
[2018-01-04 08:47] LABS: ABSOLUTE BASOPHIL COUNT 0 /CUMM (0.0-0.2); ABSOLUTE EOSINOPHIL COUNT 0 /CUMM (0.0-0.7); ABSOLUTE GRANULOCYTE CT 10.7 /CUMM (1.4-6.5); ABSOLUTE LYMPH COUNT 1.4 /CUMM (1.2-3.4); ABSOLUTE MONOCYTE COUNT 1.4 /CUMM (0.10-0.60); BASOPHIL % 0.1 % (0.0-2.0); EOSINOPHIL % 0 % (0-5); GRANULOCYTE % 79.1 % (42.2-75.2); HEMATOCRIT 23.3 % (37-47); MEAN CORPUSCULAR HGB 30.8 PG (27.0-31.0); MEAN CORPUSCULAR HGB CONC 32.8 G/DL (33.0-37.0); MEAN CORPUSCULAR VOLUME 93.8 FL (81.0-99.0); MEAN PLATELET VOLUME 10.8 FL (7.4-10.4); PLATELET COUNT 179 /CUMM (130-400); RBC DISTRIBUTION WIDTH 14.9 % (11.5-14.5); RED BLOOD CELL CT 2.48 /CUMM (4.20-5.40); WHITE BLOOD CELL COUNT 13.5 /CUMM (4.8-10.8)
--- NOTE | 2018-01-04 14:03 | PN- Gastroenterology ---
Assessment/Plan GI Assessment/Recommendations: patient had an uneventful night. One BM at 6PM with a small streak of blood and a small BM at 8AM today without blood. Feels well. No N/V/abdo pain. Tolerating PO well. Abdo soft, non-tender, no masses. 1. Advance diet. 2. continue PPI 3. Check CBC in AM. Subjective Subjective: a Objective Vital Signs and I&Os Vital Signs Date Time Temp Pulse Resp B/P B/P Pulse O2 O2 Flow FiO2 Mean Ox Delivery Rate 01/04 0857 98.4 117 20 120/78 01/04 0856 117 120/78 01/04 0716 98.4 106 20 124/66 94 01/03 2205 99.4 99 20 120/64 94 Room Air 01/03 1423 98.2 102 20 144/76 90 Room Air Intake & Output 01/04 1600 01/04 0400 01/03 1600 01/03 0400 01/02 1600 01/02 0400 Intake Total 935 675 3965 Output Total 400 300 Balance 600 14 4295 Intake, Blood 350 Product Intake, IV 1000 Intake, Oral 250 350 240 Number 1 Bowel Movements Output, Urine 400 300 Patient 178 lb Weight Weight Bed scale Measurement Method Results Pertinent Lab Results: a Laboratory Tests 01/04 01/03 0751 1926 Hematology CBC w Diff NO MAN DIFF REQ NO MAN DIFF REQ WBC (4.8 - 10.8 /CUMM) 13.5 H 15.4 H RBC (4.20 - 5.40 /CUMM) 2.48 L 2.41 L Hgb (12.0 - 16.0 G/DL) 7.6 L 7.5 L Hct (37 - 47 %) 23.3 L 22.8 L MCV (81.0 - 99.0 FL) 93.8 94.6 MCH (27.0 - 31.0 PG) 30.8 31.1 H MCHC (33.0 - 37.0 G/DL) 32.8 L 32.9 L RDW (11.5 - 14.5 %) 14.9 H 13.8 Plt Count (130 - 400 /CUMM) 179 210 MPV (7.4 - 10.4 FL) 10.8 H 10.4 Gran % (42.2 - 75.2 %) 79.1 H 91.6 H Lymphocytes % (20.5 - 51.1 %) 10.4 L 7.1 L Monocytes % (1.7 - 9.3 %) 10.4 H 1.3 L Eosinophils % (0 - 5 %) 0 0 Basophils % (0.0 - 2.0 %) 0.1 0 Absolute Granulocytes (1.4 - 6.5 /CUMM) 10.7 H 14.1 H Absolute Lymphocytes (1.2 - 3.4 /CUMM) 1.4 1.1 L Absolute Monocytes (0.10 - 0.60 /CUMM) 1.4 H 0.2 Absolute Eosinophils (0.0 - 0.7 /CUMM) 0 0 Absolute Basophils (0.0 - 0.2 /CUMM) 0 0 01/03 01/03 1344 1212 Chemistry Lactic Acid Cancelled Urines Urine Color (YEL,AMB,STR) YEL Urine Clarity (CLEAR) CLEAR Urine pH (5.0 - 8.0) 6.0 Ur Specific [place] (1.001 - 1.035) 1.020 Urine Protein (NEG,<30 MG/DL) NEG Urine Ketones (NEG) NEG Urine Nitrite (NEG) NEG Urine Bilirubin (NEG) NEG Urine Urobilinogen (0.1 - 1.0 EU/dl) 0.2 Ur Leukocyte Esterase (NEG) NEG Ur Microscopic SEDIMENT EXAMINED Urine RBC (0 - 5 /HPF) 5-10 H Urine WBC (0 - 2 /HPF) 3-5 H Ur Epithelial Cells (NONE,FEW) RARE Urine Bacteria (NEG/NONE) FEW H Hyaline Casts (0/LPF) 1-3 H Granular Casts (NONE /LPF) RARE H Urine Hemoglobin (NEG) LARGE H Urine Glucose (N MG/DL) NEG 01/03 0930 Chemistry Sodium (137 - 145 mmol/L) 143 Potassium (3.5 - 5.1 mmol/L) 4.7 Chloride (98 - 107 mmol/L) 104 Carbon Dioxide (22 - 30 mmol/L) 28 Anion Gap (5 - 16) 11 BUN (7 - 17 mg/dL) 53 H Creatinine (0.5 - 1.0 mg/dL) 0.8 Estimated GFR (>60 ml/min) > 60 BUN/Creatinine Ratio (7 - 25 %) 66.3 H Glucose (65 - 99 mg/dL) 130 H Lactic Acid (0.7 - 2.1 mmol/L) 1.7 Calcium (8.4 - 10.2 mg/dL) 8.9 Total Bilirubin (0.2 - 1.3 mg/dL) 0.6 AST (14 - 36 U/L) 15 ALT (9 - 52 U/L) 25 Alkaline Phosphatase (<127 U/L) 80 Troponin I (< 0.11 ng/ml) 0.02 Total Protein (6.3 - 8.2 g/dL) 6.7 Albumin (3.5 - 5.0 g/dL) 3.5 Globulin (1.9 - 4.2 gm/dL) 3.2 Albumin/Globulin Ratio (1.1 - 2.2 %) 1.1 Coagulation PT (9.4 - 12.5 SEC) 13.6 H INR (0.90 - 1.19) 1.24 H APTT (25 - 37 SEC) 34 Hematology CBC w Diff NO MAN DIFF REQ WBC (4.8 - 10.8 /CUMM) 13.9 H RBC (4.20 - 5.40 /CUMM) 2.73 L Hgb (12.0 - 16.0 G/DL) 8.5 L Hct (37 - 47 %) 25.5 L MCV (81.0 - 99.0 FL) 93.6 MCH (27.0 - 31.0 PG) 31.2 H MCHC (33.0 - 37.0 G/DL) 33.3 RDW (11.5 - 14.5 %) 13.7 Plt Count (130 - 400 /CUMM) 229 MPV (7.4 - 10.4 FL) 10.5 H Gran % (42.2 - 75.2 %) 84.8 H Lymphocytes % (20.5 - 51.1 %) 9.6 L Monocytes % (1.7 - 9.3 %) 5.1 Eosinophils % (0 - 5 %) 0.2 Basophils % (0.0 - 2.0 %) 0.3 Absolute Granulocytes (1.4 - 6.5 /CUMM) 11.8 H Absolute Lymphocytes (1.2 - 3.4 /CUMM) 1.3 Absolute Monocytes (0.10 - 0.60 /CUMM) 0.7 H Absolute Eosinophils (0.0 - 0.7 /CUMM) 0 Absolute Basophils (0.0 - 0.2 /CUMM) 0
[2018-01-04 15:26] VITALS: BP 132/80
[2018-01-04 22:54] VITALS: BP 121/69
[2018-01-05 07:06] VITALS: BP 149/97
[2018-01-05 08:12] LABS: ABSOLUTE BASOPHIL COUNT 0 /CUMM (0.0-0.2); ABSOLUTE EOSINOPHIL COUNT 0.2 /CUMM (0.0-0.7); ABSOLUTE GRANULOCYTE CT 5.7 /CUMM (1.4-6.5); ABSOLUTE LYMPH COUNT 2.7 /CUMM (1.2-3.4); BASOPHIL % 0.5 % (0.0-2.0); HEMATOCRIT 23.1 % (37-47); MEAN CORPUSCULAR HGB 30.3 PG (27.0-31.0); MEAN CORPUSCULAR HGB CONC 32.4 G/DL (33.0-37.0); MEAN CORPUSCULAR VOLUME 93.4 FL (81.0-99.0); MEAN PLATELET VOLUME 10.3 FL (7.4-10.4); PLATELET COUNT 188 /CUMM (130-400); RED BLOOD CELL CT 2.47 /CUMM (4.20-5.40); WHITE BLOOD CELL COUNT 9.7 /CUMM (4.8-10.8)
--- NOTE | 2018-01-05 08:24 | PN- Housestaff ---
Neeta Peterson 01/05/18 0824: Subjective Follow-up For: Upper GI bleed likely secondary to NSAIDs Acute blood loss Anemia Erosive gastritis Subjective: Patient reports lightheadedness and palpitations. Denies SOB, abdominal pain, nausea, vomiting Review of Systems Constitutional: Reports: see HPI. Objective Last 24 Hrs of Vital Signs/I&O Vital Signs Date Time Temp Pulse Resp B/P B/P Pulse O2 O2 Flow FiO2 Mean Ox Delivery Rate 01/05 0848 79 118/72 01/05 0848 79 118/72 01/05 0706 98.3 78 20 149/97 94 Room Air 01/04 2254 99.2 80 20 121/69 94 Room Air 01/04 1526 98.0 90 19 132/80 92 Room Air Intake & Output 01/05 1600 01/05 0800 01/05 0000 Intake Total 240 480 Output Total 400 Balance -160 480 Intake, Oral 240 480 Output, Urine 400 Physical Exam General Appearance: Alert, Oriented X3, Cooperative, No Acute Distress Cardiovascular: Regular Rate, Normal S1, Normal S2, No Murmurs Lungs: Clear to Auscultation, Normal Air Movement Abdomen: Normal Bowel Sounds, Soft, No Tenderness Current Medications: Current Medications Sig/Ashlee Start time Last Medication Dose Route Stop Time Status Admin Acetaminophen 650 MG .STK-MED ONE 01/04 2118 DC PO 01/04 211 Acetaminophen 325 MG Q6P PRN 01/03 1315 AC 01/05 PO 0846 Acetaminophen/ 1 TAB ONCE PRN 01/03 1715 AC 01/03 Butalbital/Caffeine PO 1803 Alprazolam 0.5 MG TIDPRN PRN 01/04 1745 AC 01/04 PO 01/11 1735 2304 Alprazolam 0.5 MG DAILY NEEDED PRN 01/03 1315 DC 01/04 PO / 1314 1005 Atorvastatin Calcium 20 MG 1700 01/03 1700 AC 01/04 PO 1714 Ferrous Sulfate 325 MG BID 01/03 1401 AC 01/05 PO 0848 Fluoxetine HCl 20 MG DAILY 01/04 1000 AC 01/05 PO 0848 Losartan Potassium 50 MG DAILY 01/04 1000 AC 01/05 PO 0848 Metoprolol Succinate 100 MG DAILY 01/04 1000 AC 01/05 PO 0848 Omeprazole 40 MG BID 01/03 1401 AC 01/05 PO 0849 Phenol 2 SPRAY Q2P PRN 01/03 1400 AC EXT Last 24 Hrs of Lab/Seun Results Last 24 Hrs of Labs/Mics: Laboratory Tests 01/05/18 0750: Anion Gap 9, Estimated GFR > 60, BUN/Creatinine Ratio 30.0 H, CBC w Diff NO MAN DIFF REQ, RBC 2.47 L, MCV 93.4, MCH 30.3, MCHC 32.4 L, RDW 15.0 H, MPV 10.3, Gran % 59.0, Lymphocytes % 27.8, Monocytes % 10.7 H, Eosinophils % 2.0, Basophils % 0.5, Absolute Granulocytes 5.7, Absolute Lymphocytes 2.7, Absolute Monocytes 1.0 H, Absolute Eosinophils 0.2, Absolute Basophils 0 Assessment/Plan Assessment: Ms. Kuhn is a 72 year old female with a PMH significant for hypertension, hyperlipidemia, migraines and gastritis who presented to [facility] with complaints of coffee-ground emesis and bright blood per rectum. Problem list: Upper GI bleed likely secondary to NSAIDs s/p endoscopy w/biopsy Acute blood loss Anemia Erosive gastritis Small clean-based duodenal ulcers Plan: CBC q12 and target hgb > 8, transfuse PRN Continue Protonix Continue Alprazolam PRN for Anxiety Continue Losartan, Metoprolol, Atorvastatin GI recommendations appreciated Possible discharge in a.m. if symtpoms resolve and hgb remain stable PT evaluation for unsteady gait DVT prophylaxis: ALPS Full code Problem List: 1. Upper GI bleed Pain Ratin Pain Location: NA Pain Goal: Remain pain free Pain Plan: NA Tomorrow's Labs & Rationales: CBC for anemia Carol JOHANSEN,[facility] 01/05/18 1225: Attending MD Review Statement Attending Statement Attending MD Statement: examined this patient, discuss w/resident/PA/PROFESSOR OF VIOLIN, agreed w/resident/PA/PROFESSOR OF VIOLIN, reviewed EMR data (avail), discussed with nursing, discussed with case mgmt, reviewed images, amended to note Attending Assessment/Plan: 72-year-old female with past medical history significant for hypertension, hyperlipidemia, migraines was initially admitted to the floor for upper GI bleed given coffee-ground emesis and melena. Patient does has a past history of gastric erosions that was diagnosed last year by OGD that initially responded to PPI which she continued for 3 months but then stopped. On admission her hemoglobin dropped from a baseline of 11-8. OGD showed multiple nonbleeding duodenal ulcer and gastric erosions. Patient also received 1% of blood transfusion. Currently her hemoglobin is stable at 7.5. Patient currently is tolerating the diet and had a good meal last night with no nausea vomiting or abdominal pain. On examination she reported that she feels weak and lethargic but denies any syncope or presyncope. GI has followed up on the patient and not sure whether the patient will undergo colonoscopy on this admission which should be confirmed from his regular statistical secretary. Advised to completely avoid NSAIDs in future and continue with PPI and follow up on further recommendations from the GI.
--- NOTE | 2018-01-05 11:43 | PN- Gastroenterology ---
Assessment/Plan GI Assessment/Recommendations: Patient generally feeling well. No bowel movements since yesterday afternoon. Had a full meal last night. No nausea vomiting abdominal pain. Hematocrit is low but stable. Patient has been up and around today. Overall feels weak and somewhat unsteady on her feet. No presyncope or syncope. Abdomen is soft nontender no masses no rebound. Overall patient is recovering well. Recommend one more hospital day 2 and showed that she has regained full stability. This will also give us another day 2 and showed that her hematocrit is stable. Plan for DC tomorrow. Subjective Subjective: x Objective Vital Signs and I&Os xVital Signs Date Time Temp Pulse Resp B/P B/P Pulse O2 O2 Flow FiO2 Mean Ox Delivery Rate 01/05 0848 79 118/72 01/05 0848 79 118/72 01/05 0706 98.3 78 20 149/97 94 Room Air 01/04 2254 99.2 80 20 121/69 94 Room Air 01/04 1526 98.0 90 19 132/80 92 Room Air Intake & Output 01/05 1600 01/05 0400 01/04 1600 01/04 0400 01/03 1600 01/03 0400 Intake Total 801 607 7004 350 1240 Output Total 400 400 300 Balance -160 480 189 78 1359 Intake, Blood 350 Product Intake, IV 1000 Intake, Oral 240 480 750 350 240 Number 1 Bowel Movements Output, Urine 400 400 300 Patient 178 lb Weight Weight Bed scale Measurement Method Results Pertinent Lab Results: x Laboratory Tests 01/05 01/04 0750 0751 Chemistry Sodium (137 - 145 mmol/L) 142 Potassium (3.5 - 5.1 mmol/L) 4.0 Chloride (98 - 107 mmol/L) 103 Carbon Dioxide (22 - 30 mmol/L) 30 Anion Gap (5 - 16) 9 BUN (7 - 17 mg/dL) 24 H Creatinine (0.5 - 1.0 mg/dL) 0.8 Estimated GFR (>60 ml/min) > 60 BUN/Creatinine Ratio (7 - 25 %) 30.0 H Hematology CBC w Diff NO MAN DIFF REQ NO MAN DIFF REQ WBC (4.8 - 10.8 /CUMM) 9.7 13.5 H RBC (4.20 - 5.40 /CUMM) 2.47 L 2.48 L Hgb (12.0 - 16.0 G/DL) 7.5 L 7.6 L Hct (37 - 47 %) 23.1 L 23.3 L MCV (81.0 - 99.0 FL) 93.4 93.8 MCH (27.0 - 31.0 PG) 30.3 30.8 MCHC (33.0 - 37.0 G/DL) 32.4 L 32.8 L RDW (11.5 - 14.5 %) 15.0 H 14.9 H Plt Count (130 - 400 /CUMM) 188 179 MPV (7.4 - 10.4 FL) 10.3 10.8 H Gran % (42.2 - 75.2 %) 59.0 79.1 H Lymphocytes % (20.5 - 51.1 %) 27.8 10.4 L Monocytes % (1.7 - 9.3 %) 10.7 H 10.4 H Eosinophils % (0 - 5 %) 2.0 0 Basophils % (0.0 - 2.0 %) 0.5 0.1 Absolute Granulocytes (1.4 - 6.5 /CUMM) 5.7 10.7 H Absolute Lymphocytes (1.2 - 3.4 /CUMM) 2.7 1.4 Absolute Monocytes (0.10 - 0.60 /CUMM) 1.0 H 1.4 H Absolute Eosinophils (0.0 - 0.7 /CUMM) 0.2 0 Absolute Basophils (0.0 - 0.2 /CUMM) 0 0 01/03 01/03 1926 1344 Hematology CBC w Diff NO MAN DIFF REQ WBC (4.8 - 10.8 /CUMM) 15.4 H RBC (4.20 - 5.40 /CUMM) 2.41 L Hgb (12.0 - 16.0 G/DL) 7.5 L Hct (37 - 47 %) 22.8 L MCV (81.0 - 99.0 FL) 94.6 MCH (27.0 - 31.0 PG) 31.1 H MCHC (33.0 - 37.0 G/DL) 32.9 L RDW (11.5 - 14.5 %) 13.8 Plt Count (130 - 400 /CUMM) 210 MPV (7.4 - 10.4 FL) 10.4 Gran % (42.2 - 75.2 %) 91.6 H Lymphocytes % (20.5 - 51.1 %) 7.1 L Monocytes % (1.7 - 9.3 %) 1.3 L Eosinophils % (0 - 5 %) 0 Basophils % (0.0 - 2.0 %) 0 Absolute Granulocytes (1.4 - 6.5 /CUMM) 14.1 H Absolute Lymphocytes (1.2 - 3.4 /CUMM) 1.1 L Absolute Monocytes (0.10 - 0.60 /CUMM) 0.2 Absolute Eosinophils (0.0 - 0.7 /CUMM) 0 Absolute Basophils (0.0 - 0.2 /CUMM) 0 Urines Urine Color (YEL,AMB,STR) YEL Urine Clarity (CLEAR) CLEAR Urine pH (5.0 - 8.0) 6.0 Ur Specific [place] (1.001 - 1.035) 1.020 Urine Protein (NEG,<30 MG/DL) NEG Urine Ketones (NEG) NEG Urine Nitrite (NEG) NEG Urine Bilirubin (NEG) NEG Urine Urobilinogen (0.1 - 1.0 EU/dl) 0.2 Ur Leukocyte Esterase (NEG) NEG Ur Microscopic SEDIMENT EXAMINED Urine RBC (0 - 5 /HPF) 5-10 H Urine WBC (0 - 2 /HPF) 3-5 H Ur Epithelial Cells (NONE,FEW) RARE Urine Bacteria (NEG/NONE) FEW H Hyaline Casts (0/LPF) 1-3 H Granular Casts (NONE /LPF) RARE H Urine Hemoglobin (NEG) LARGE H Urine Glucose (N MG/DL) NEG 01/03 01/03 1212 0930 Chemistry Sodium (137 - 145 mmol/L) 143 Potassium (3.5 - 5.1 mmol/L) 4.7 Chloride (98 - 107 mmol/L) 104 Carbon Dioxide (22 - 30 mmol/L) 28 Anion Gap (5 - 16) 11 BUN (7 - 17 mg/dL) 53 H Creatinine (0.5 - 1.0 mg/dL) 0.8 Estimated GFR (>60 ml/min) > 60 BUN/Creatinine Ratio (7 - 25 %) 66.3 H Glucose (65 - 99 mg/dL) 130 H Lactic Acid (0.7 - 2.1 mmol/L) Cancelled 1.7 Calcium (8.4 - 10.2 mg/dL) 8.9 Total Bilirubin (0.2 - 1.3 mg/dL) 0.6 AST (14 - 36 U/L) 15 ALT (9 - 52 U/L) 25 Alkaline Phosphatase (<127 U/L) 80 Troponin I (< 0.11 ng/ml) 0.02 Total Protein (6.3 - 8.2 g/dL) 6.7 Albumin (3.5 - 5.0 g/dL) 3.5 Globulin (1.9 - 4.2 gm/dL) 3.2 Albumin/Globulin Ratio (1.1 - 2.2 %) 1.1 Coagulation PT (9.4 - 12.5 SEC) 13.6 H INR (0.90 - 1.19) 1.24 H APTT (25 - 37 SEC) 34 Hematology CBC w Diff NO MAN DIFF REQ WBC (4.8 - 10.8 /CUMM) 13.9 H RBC (4.20 - 5.40 /CUMM) 2.73 L Hgb (12.0 - 16.0 G/DL) 8.5 L Hct (37 - 47 %) 25.5 L MCV (81.0 - 99.0 FL) 93.6 MCH (27.0 - 31.0 PG) 31.2 H MCHC (33.0 - 37.0 G/DL) 33.3 RDW (11.5 - 14.5 %) 13.7 Plt Count (130 - 400 /CUMM) 229 MPV (7.4 - 10.4 FL) 10.5 H Gran % (42.2 - 75.2 %) 84.8 H Lymphocytes % (20.5 - 51.1 %) 9.6 L Monocytes % (1.7 - 9.3 %) 5.1 Eosinophils % (0 - 5 %) 0.2 Basophils % (0.0 - 2.0 %) 0.3 Absolute Granulocytes (1.4 - 6.5 /CUMM) 11.8 H Absolute Lymphocytes (1.2 - 3.4 /CUMM) 1.3 Absolute Monocytes (0.10 - 0.60 /CUMM) 0.7 H Absolute Eosinophils (0.0 - 0.7 /CUMM) 0 Absolute Basophils (0.0 - 0.2 /CUMM) 0
[2018-01-05 14:37] VITALS: BP 117/64
[2018-01-05 21:27] VITALS: BP 112/60
[2018-01-06 06:21] VITALS: BP 150/84
[2018-01-06 06:25] VITALS: BP 150/84
--- NOTE | 2018-01-06 07:31 | PN- Housestaff ---
See Addendum Subjective Follow-up For: Upper GI bleed likely secondary to NSAIDs Acute blood loss Anemia Erosive gastritis Subjective: Patient seen and examined. Resting comfortably. Continues to complain of dizziness. Has not been out of the bed and moved around, plan for today is to work with PT At present patient's H&H is 7.5 patient received transfusion over the weekend H/ H did not go up adequately. This patient is complaining of dizziness today and weakness as well. We are going to go ahead and transfuse 1 unit and repeat CBCs after the transfusion We will monitor the patient today and repete the CBCs in the a.m. as well and if stable without any events, anticipate discharge for tomorrow after GI evaluation No bloody BM after episode on 01/03. Review of Systems Constitutional: Reports: see HPI. Objective Last 24 Hrs of Vital Signs/I&O Vital Signs Date Time Temp Pulse Resp B/P B/P Pulse O2 O2 Flow FiO2 Mean Ox Delivery Rate 01/06 0933 78 118/64 01/06 0933 78 118/64 01/06 0625 97.6 71 20 150/84 93 01/05 2127 98.0 77 18 112/60 94 Room Air 01/05 1437 98.1 76 20 117/64 93 Room Air Intake & Output 01/06 1600 01/06 0800 01/06 0000 Intake Total 120 120 Output Total 350 450 Balance -230 -330 Intake, Oral 120 120 Output, Urine 350 450 Physical Exam General Appearance: Alert, Oriented X3, Cooperative Cardiovascular: Normal S1, Normal S2, No Murmurs Lungs: Clear to Auscultation, Normal Air Movement Abdomen: Normal Bowel Sounds, Soft, No Tenderness Neurological: Normal Speech Extremities: 2+edema chronic Current Medications: Current Medications Sig/Ashlee Start time Last Medication Dose Route Stop Time Status Admin Acetaminophen 325 MG .STK-MED ONE 01/06 0145 DC PO 01/06 0146 Acetaminophen 325 MG Q6P PRN 01/03 1315 AC 01/06 PO 0536 Acetaminophen/ 1 TAB ONCE ONE 01/06 0230 DC 01/06 Butalbital/Caffeine PO 01/06 0231 0240 Acetaminophen/ 1 TAB ONCE PRN 01/03 1715 AC 01/03 Butalbital/Caffeine PO 1803 Alprazolam 0.5 MG TIDPRN PRN 01/04 1745 AC 01/06 PO 01/11 1735 0933 Atorvastatin Calcium 20 MG 1700 01/03 1700 AC 01/05 PO 1650 Ferrous Sulfate 325 MG BID 01/03 1401 AC 01/06 PO 0933 Fluoxetine HCl 20 MG DAILY 01/04 1000 AC 01/06 PO 0933 Losartan Potassium 50 MG DAILY 01/04 1000 AC 01/06 PO 0933 Metoprolol Succinate 100 MG DAILY 01/04 1000 AC 01/06 PO 0933 Omeprazole 40 MG BID 01/03 1401 AC 01/06 PO 0933 Phenol 2 SPRAY Q2P PRN 01/03 1400 AC EXT Last 24 Hrs of Lab/Seun Results Last 24 Hrs of Labs/Mics: Laboratory Tests 01/06/18 0758: CBC w Diff NO MAN DIFF REQ, RBC 2.43 L, MCV 94.4, MCH 31.2 H, MCHC 33.1, RDW 14.6 H, MPV 9.9, Gran % 66.1, Lymphocytes % 19.0 L, Monocytes % 11.5 H, Eosinophils % 3.0, Basophils % 0.4, Absolute Granulocytes 6.2, Absolute Lymphocytes 1.8, Absolute Monocytes 1.1 H, Absolute Eosinophils 0.3, Absolute Basophils 0 Assessment/Plan Assessment: Ms. Kuhn is a 72 year old female with a PMH significant for hypertension, hyperlipidemia, migraines and gastritis who presented to [facility] with complaints of coffee-ground emesis and bright blood per rectum. She is being evaluated for following conditions #Upper GI bleed likely secondary to NSAIDs Endoscopy was done by Dr ma and it showed clean-based duodenal ulcers, erosive gastritis and deformed antrum suggestive of prior peptic ulcer disease. No active bleeding was appreciated. Patient had an episode of bright red blood per rectum with passage of clots after the endoscopy on 01/03. She was transferred 1 unit of blood however H/H didnot bump up adequately She continues to complain of dizziness -Transfuse another unit of pRBCS -Monitor CBC post transfusion -Continue omeprazole 40 mg BID -Continue Iron supplementation -PT eval today -GI on board #Acute blood loss Anemia Most likely secondary to GI bleed -Continue to monitor H/H -Transfuse as indicated. -Check iron studies, folate, B12 #Migraines -if headache, try firocet. -AVOID NSAIDS, and has been extensively counseled #Hypertension/Hyperlipidemia -Continue metoprolol 100 mg od, cozaar,lipitor Diet has been advanced to regular/DVT prophylaxis Alps only/Full code Problem List: 1. Upper GI bleed Pain Ratin Pain Location: none Pain Goal: Pain 4 or less Pain Plan: prn Tomorrow's Labs & Rationales: cbc post transfusion and in a,
[2018-01-06] MEDS ORDERED: OMEPRAZOLE40 M1 PO (07:51)
[2018-01-06] MEDS ORDERED: FERROUS SULFAT325 M2 PO (07:52)
[2018-01-06 08:15] LABS: ABSOLUTE BASOPHIL COUNT 0 /CUMM (0.0-0.2); ABSOLUTE EOSINOPHIL COUNT 0.3 /CUMM (0.0-0.7); ABSOLUTE GRANULOCYTE CT 6.2 /CUMM (1.4-6.5); ABSOLUTE LYMPH COUNT 1.8 /CUMM (1.2-3.4); ABSOLUTE MONOCYTE COUNT 1.1 /CUMM (0.10-0.60); BASOPHIL % 0.4 % (0.0-2.0); GRANULOCYTE % 66.1 % (42.2-75.2); MEAN CORPUSCULAR HGB 31.2 PG (27.0-31.0); MEAN CORPUSCULAR HGB CONC 33.1 G/DL (33.0-37.0); MEAN CORPUSCULAR VOLUME 94.4 FL (81.0-99.0); MEAN PLATELET VOLUME 9.9 FL (7.4-10.4); PLATELET COUNT 199 /CUMM (130-400); RBC DISTRIBUTION WIDTH 14.6 % (11.5-14.5); RED BLOOD CELL CT 2.43 /CUMM (4.20-5.40); WHITE BLOOD CELL COUNT 9.4 /CUMM (4.8-10.8)
--- NOTE | 2018-01-06 08:21 | Patient Discharge Instructions ---
Discharge Instructions General Discharge Information You were seen/treated for: GI bleed after endoscopy Watch for these problems: fever, shortness of breath, loss of balance, passing out, dizziness, palpitations Please return to ED if you notice blood in vomit, blood in stool Special Instructions: -follow-up with your PCP after discharge -Please follow-up with your GI doctor after discharge -Please avoid NSAIDs which include Motrin, aspirin and naproxen plus others -Use Tylenol for pain control and Firocet for headaches Activity Activity Self Limited: Yes Acute Coronary Syndrome Inclusion Criteria At DC or during hospital stay patient has or had the following: ACS DIAGNOSIS No Discharge Core Measures Meds if any: Prescribed or Continued at Discharge Meds if any: NOT Prescribed or Continued at Discharge Congestive Heart Failure Inclusion Criteria At DC or during hospital stay patient has or had the following: CHF DIAGNOSIS No Discharge Core Measures Meds if any: Prescribed or Continued at Discharge Meds if any: NOT Prescribed or Continued at Discharge Cerebrovascular accident Inclusion Criteria At DC or during hospital stay patient has or had the following: CVA/TIA Diagnosis No Discharge Core Measures Meds if any: Prescribed or Continued at Discharge Meds if any: NOT Prescribed or Continued at Discharge Venous thromboembolism Inclusion Criteria VTE Diagnosis No VTE Type NONE VTE Confirmed by (Test) NONE Discharge Core Measures - Per Current guidelines, there needs to be overlap - treatment for the first 5 days of Warfarin therapy. - If discharged on Warfarin prior to 5 days of - overlap therapy, the patient will need to be - assessed for post discharge needs including - *Post discharge parental anticoagulation - *Warfarin and/or parental anticoagulation education - *Follow up date to check INR post discharge At least 5 days overlap therapy as Inpatient No Meds if any: Prescribed or Continued at Discharge Note: Overlap Therapy is Warfarin and Anticoagulant Meds if any: NOT Prescribed or Continued at Discharge
--- NOTE | 2018-01-06 11:31 | Discharge Summary ---
Visit Information Visit Dates Admission Date: 01/03/18 Discharge Date: 01/07/18 Hospital Course Course Attending Physician: Fletcher Cunha MD Primary Care Physician: Quirino JOHANSEN,[facility] Course: The patient is a 72 year old female with a PMH significant for hypertension, hyperlipidemia, migraines and gastritis who presented to [facility] with complaints of multiple episodes of coffee-ground emesis and bright blood per rectum. Of note patient gave history of using aspirin multiple times during the day for headaches/migraines Vitals on presentation WNL except HR tachycardic up to 102 Admission labs were pertinent for leukocytosi 13.9, H&H of 8.3/25.5 (baseline Hb 11) Rectal exam done in the ER showed dark guaiac-positive stool. She was admitted to the general medicine floor and was treated evaluated for upper right GI bleed secondary to NSAID use and acute blood loss anemia Patient had endoscopy done on 01/[address] Jones which showed clean-based duodenal ulcers, erosive gastritis and deformed antrum suggestive of prior peptic ulcer disease. No active bleeding was appreciated. The initial plan was to discharge after 24-hour monitoring. However she had an episode of bright red blood per rectum with passage of clots after the endoscopy on evening of 01/03. H/H dropped to 7.5/22.8. On-call conservation coordinator Dr. Sosa was contacted and we decided to proceed with 1 unit of pRBC transfusion. Repeat CBCs in am remained stable H/H of 7.6/23, though was not adequately repleted after 1 unit of transfusion. There was a question of doing a colonoscopy during this visit however after consulting with GI, it was deferred. Patient continued to complain of palpitations and dizziness during her stay prompting another blood transfusion on 01/06. Patient did not have any other bloody bowel movements after that. Her diet was advanced to clears and then to regular. Her H&H has stayed relatively stable most recent value being 8/25 s/p 2 units of pRBCS. She also reports improvement in symptoms Patient has also been evaluated by PT who recommended home physical therapy, she is being discharged with services During her stay her headaches were controlled with firocet -Patient is being discharged on omeprazole 40 mg twice a day and iron supplementation (iron studies show iron 67, TIBC 318, ferritin 14.6) -Patient will require monitoring of H/H by PCP, prescription for CBC on 01/10 has been provided -She will also require follow-up with GI -Patient has been extensively counseled not to use NSAIDs that include aspirin, naproxen, Motrin etc. She has appointment with Dr. Saunders neurologist for migraines. Meanwhile we are discharging her on firocet Rest of her medications metoprolol Cozaar and Lipitor were continued DVT prophylaxis was achieved with ALPS only, in Setting of GI Bleed She was full code during her stay Allergies: Coded Allergies: amoxicillin (From AUGMENTIN) (Intermediate, stomach DISCOMFORT 01/03/18) clavulanic acid (From AUGMENTIN) (Intermediate, stomach DISCOMFORT 01/03/18) Disposition Summary Disposition Principal Diagnosis: Upper GI bleed secondary to NSAID use Additional Diagnosis: Acute blood loss anemia Discharge Disposition: home or self care Discharge Instructions General Discharge Information Code Status: Full Code Patient's Diet: Regular Patient's Activity: Self-limited Follow-Up Instructions/Appts: Please follow-up with PCP after discharge Please follow-up with conservation coordinator after discharge Please follow-up with neurologist Dr. Saunders after discharge for headaches Medications at Discharge Discharge Medications: Continue taking these medications: Metoprolol Succinate (Metoprolol Succinate) 100 MG TAB.ER.24H 1 Tablet ORAL DAILY Comments: Last Taken: 01/07/18 Time: 9:00 AM Simvastatin (Zocor*) 20 MG TABLET 1 Tablet ORAL Every night Comments: Last Taken: 01/06/17 Time: 5:30 PM (LIPITOR 20MG GIVEN) Fluoxetine HCl (Fluoxetine HCl) 20 MG CAPSULE 1 Capsule ORAL DAILY Comments: Last Taken: 01/07/18 Time: 9:00 AM Multivitamin (Multiple Vitamins) 1 EACH TABLET 1 Tablet ORAL DAILY Comments: NOT GIVEN IN HOSPITAL Calcium Carb & Citrate/Vit D3 (Calcium + D3 ER Tablet) 600 MG CALCIUM-500 UNIT TABLET.ER 1 Tablet ORAL DAILY Comments: NOT GIVEN IN HOSPITAL Alprazolam (Alprazolam) 0.5 MG TABLET 1 Tablet ORAL DAILY NEEDED as needed for ANXIETY Comments: Last Taken: 01/06/18 Time: 9:30 PM Valsartan (Diovan) 80 MG TABLET 1 Tablet ORAL DAILY Comments: Last Taken: 01/04/18 Time: 9:00 AM (COZAAR GIVEN) Ferrous Sulfate (Ferrous Sulfate) 325 MG (65 MG IRON) TABLET.DR 1 Tablet ORAL TWICE DAILY Qty = 30 Instructions: . Comments: Last Taken: 01/07/18 Time: 9:00 AM This prescription has been renewed Start taking the following new medications: Butalb/Acetaminophen/Caffeine (Kfvabr-Uktvjeia-Rouw 50-325-40) 50 MG-325 MG-40 MG TABLET 1 Tablet ORAL TWICE DAILY as needed for Migranes Qty = 10 No Refills Comments: Last Taken: 01/07/18 Time: 6:45 AM Omeprazole (Omeprazole) 40 MG CAPSULE.DR 1 Capsule ORAL DAILY Qty = 30 No Refills Instructions: . Comments: Last Taken: 01/07/18 Time: 9:00 AM Copies To: Chip JOHANSEN,Kelby Henderson; Quirino JOHANSEN,Mary; Robert JOHANSEN,Sharan
[2018-01-06] MEDS ORDERED: BUTALB-ACETAMI1 EACH PO (14:29)
[2018-01-06 15:12] VITALS: BP 120/50
[2018-01-06 22:02] VITALS: BP 110/62
[2018-01-07 05:40] VITALS: BP 148/86
--- NOTE | 2018-01-07 07:25 | PN- Housestaff ---
See Addendum Subjective Follow-up For: Upper GI bleed secondary to aspirin use Subjective: -Patient seen and examined. Resting comfortably. reports improvement in symptoms after the blood transfusion. The dizziness is much improved. Continues to have palpitations. Otherwise feeling much better. Has worked with the PT and cleared for home d/c -Dr. Jones saw the patient yesterday however did not leave a note. I talked to him and he is okay with discharging the patient today. He counseled the patient to follow-up with GI every 3 months. -She received 1 unit of blood transfusion yesterday. She is status post 2 units of PRBCs since her admission. -She is requesting to be discharged on fiorocet for headaches/migraines -NO bloody BMs Review of Systems Constitutional: Reports: see HPI. Objective Last 24 Hrs of Vital Signs/I&O Vital Signs Date Time Temp Pulse Resp B/P B/P Pulse O2 O2 Flow FiO2 Mean Ox Delivery Rate 01/07 0540 98.3 85 22 148/86 93 Room Air 01/06 2202 98.2 84 22 110/62 93 Room Air 01/06 1512 98.5 93 20 120/50 95 Room Air 01/06 0933 78 118/64 01/06 0933 78 118/64 Intake & Output 01/07 1600 01/07 0800 01/07 0000 Intake Total 120 730 Output Total 1000 375 Balance -880 355 Intake, IV 0 10 Intake, Oral 120 720 Number 1 0 Bowel Movements Output, Urine 1000 375 Physical Exam General Appearance: Alert, Oriented X3, Cooperative Cardiovascular: Normal S1, Normal S2 Lungs: Clear to Auscultation, Normal Air Movement Abdomen: Normal Bowel Sounds, Soft Neurological: Normal Speech Current Medications: Current Medications Sig/Ashlee Start time Last Medication Dose Route Stop Time Status Admin Acetaminophen 325 MG .STK-MED ONE 01/064 DC PO 01/06 212 Acetaminophen 325 MG Q6P PRN 01/03 1315 AC 01/07 PO 0436 Acetaminophen/ 1 TAB Q8P PRN 01/06 1400 AC 01/07 Butalbital/Caffeine PO 0646 Acetaminophen/ 1 TAB ONCE PRN 01/03 1715 DC 01/03 Butalbital/Caffeine PO 1803 Alprazolam 0.5 MG TIDPRN PRN 01/04 1745 AC 01/06 PO 01/11 1735 2121 Atorvastatin Calcium 20 MG 1700 01/03 1700 AC 01/06 PO 1734 Ferrous Sulfate 325 MG BID 01/03 1401 AC 01/06 PO 2121 Fluoxetine HCl 20 MG DAILY 01/04 1000 AC 01/06 PO 0933 Losartan Potassium 50 MG DAILY 01/04 1000 AC 01/06 PO 0933 Metoprolol Succinate 100 MG DAILY 01/04 1000 AC 01/06 PO 0933 Omeprazole 40 MG BID 01/03 1401 AC 01/06 PO 2121 Patient Medication 1 ED ONE ONE 01/06 1030 DC 01/06 Teaching ED 01/06 1031 1346 Phenol 2 SPRAY Q2P PRN 01/03 1400 AC EXT Last 24 Hrs of Lab/Seun Results Last 24 Hrs of Labs/Mics: Laboratory Tests 01/07/18 0705: CBC w Diff Pending, WBC Pending, RBC Pending, Hgb Pending, Hct Pending, MCV Pending, MCH Pending, MCHC Pending, RDW Pending, Plt Count Pending, MPV Pending 01/06/18 1500: CBC w Diff Cancelled, WBC Cancelled, RBC Cancelled, Hgb Cancelled, Hct Cancelled , MCV Cancelled, MCH Cancelled, MCHC Cancelled, RDW Cancelled, Plt Count Cancelled, MPV Cancelled Assessment/Plan Assessment: The pt is a 72 year old female with a PMH significant for hypertension, hyperlipidemia, migraines and gastritis who presented to [facility] with complaints of coffee-ground emesis and bright blood per rectum. She is being evaluated for following conditions #Upper GI bleed likely secondary to NSAIDs -Stable for discharge -Monitor H/H -Continue omeprazole 40 mg BID and Continue Iron supplementation -GI on board #Acute blood loss Anemia Most likely secondary to GI bleed -Continue to monitor H/H -Transfuse as indicated. -Continue iron supplementation #Migraines -Firocet for headaches -AVOID NSAIDS, and has been extensively counseled #Hypertension/Hyperlipidemia -Continue metoprolol 100 mg od, cozaar,lipitor Regular diet/DVT prophylaxis Alps only/Full code Problem List: 1. Upper GI bleed Pain Ratin Pain Location: n/a Pain Goal: Remain pain free Pain Plan: prn Tomorrow's Labs & Rationales: n/a
[2018-01-07] MEDS ORDERED: BUTALB-ACETAMI1 EACH PO ×4 (08:00→13:03)
[2018-01-07 08:19] LABS: ABSOLUTE BASOPHIL COUNT 0.1 /CUMM (0.0-0.2); ABSOLUTE EOSINOPHIL COUNT 0.3 /CUMM (0.0-0.7); ABSOLUTE GRANULOCYTE CT 5.7 /CUMM (1.4-6.5); ABSOLUTE LYMPH COUNT 1.5 /CUMM (1.2-3.4); ABSOLUTE MONOCYTE COUNT 1.2 /CUMM (0.10-0.60); BASOPHIL % 0.6 % (0.0-2.0); EOSINOPHIL % 3.7 % (0-5); GRANULOCYTE % 65.6 % (42.2-75.2); HEMATOCRIT 24.9 % (37-47); MEAN CORPUSCULAR HGB 31.1 PG (27.0-31.0); MEAN CORPUSCULAR HGB CONC 33.1 G/DL (33.0-37.0); MEAN CORPUSCULAR VOLUME 93.9 FL (81.0-99.0); MEAN PLATELET VOLUME 10.2 FL (7.4-10.4); PLATELET COUNT 207 /CUMM (130-400); RBC DISTRIBUTION WIDTH 15.3 % (11.5-14.5); RED BLOOD CELL CT 2.66 /CUMM (4.20-5.40); WHITE BLOOD CELL COUNT 8.8 /CUMM (4.8-10.8)
[2018-01-07 09:04] VITALS: BP 146/82
[2018-01-07] MEDS ORDERED: FERROUS SULFAT325 M2 PO (12:27)
[2018-01-07] MEDS ORDERED: OMEPRAZOLE40 M1 PO (12:27)
== END 2018-01-07 13:34 | disposition home health service (06) | DRG 378 ==
LOC: ERH → 2NB 11:45 → ERHI 11:45 → ENRESERV 13:28 → ENTRNSPT 13:48 → EDTRNSPTSTS 13:52 → EDTRNSPT 13:52 → 2NB 14:08 → CMPTRNSPT 14:28 → 2NB 01-06 08:18 → ENPENDDIS 01-07 09:30 → ENTRNSPT 01-07 13:27 → 2NB 01-07 13:34 → EDTRNSPTSTS 01-07 13:37 → EDTRNSPT 01-07 13:37 → CMPTRNSPT 01-07 13:47
PROVIDERS: Internal Medicine; Physician Assistant Medical; Student in an Organized Health Care Education/Training Program
PROC: 0DB78ZX Excision of Stomach, Pylorus, Via Natural or Artificial Opening Endoscopic, Diagnostic (ICD-10-PCS; principal; 2018-01-03)
PROC: 30233N1 Transfusion of Nonautologous Red Blood Cells into Peripheral Vein, Percutaneous Approach (ICD-10-PCS; 2018-01-03)
DX: K26.0 Acute duodenal ulcer with hemorrhage (principal); D62 Acute posthemorrhagic anemia; E78.5 Hyperlipidemia, unspecified; I10 Essential (primary) hypertension; K29.70 Gastritis, unspecified, without bleeding; T39.395A Adverse effect of other nonsteroidal anti-inflammatory drugs [NSAID], initial encounter; G43.909 Migraine, unspecified, not intractable, without status migrainosus; Z88.1 Allergy status to other antibiotic agents; K21.9 Gastro-esophageal reflux disease without esophagitis; R00.0 Tachycardia, unspecified; Z98.51 Tubal ligation status; Z87.891 Personal history of nicotine dependence
CPT/HCPCS: 2NBP; 36415; 36592; 81001; 82436; 86920; 88305; 88312; 93005; 93010; 96365; 96366; 97116-GO; 97161-GP; 97530-GO; 99291; J7508; P9016